=== PATIENT | female | born 1945 | race Caucasian/White ===

== ENCOUNTER 2018-12-28 07:41 | Emergency (ER) | payer MEDICARE, MEDICAID ==
[~2018-12-28] VITALS: Ht 167.6 cm; Wt 104.5 kg
[~2018-12-28 07:41] MED LIST: FOLI1 PO; HYDR25TA PO; LISI-660 PO; LOVA20 PO; MV-M1TAB2 PO; SERT100T12 PO; THIA100T67 PO
[2018-12-28 07:43] VITALS: BP 159/86
[2018-12-28 08:00] LABS: GLUCOSE,POINT OF CARE 133 MG/DL (70-110)
[2018-12-28] MEDS ORDERED: CEPHALEXIN MONOHYDRATE 500 MG CAPSULE PO ONE (08:30)
[2018-12-28] MEDS ORDERED: PHENAZOPYRIDINE HCL 100 MG TABLET PO ONE (08:30)
== END 2018-12-28 08:46 | disposition home or self-care (01) ==
LOC: EMS 07:43
DX: N30.90 Cystitis, unspecified without hematuria (principal); E11.9 Type 2 diabetes mellitus without complications; Z88.5 Allergy status to narcotic agent; Z79.899 Other long term (current) drug therapy

== ENCOUNTER 2019-04-10 14:16 | Emergency (ER) | payer MEDICARE, OTHER ==
[~2019-04-10] VITALS: Ht 170.2 cm; Wt 93.6 kg
[2019-04-10 14:45] LABS: GLUCOSE,POINT OF CARE 108 MG/DL (70-110)
[2019-04-10 15:51] VITALS: BP 148/91
== END 2019-04-10 16:08 | disposition home or self-care (01) ==
LOC: EMS 14:19
DX: J40 Bronchitis, not specified as acute or chronic (principal); E11.9 Type 2 diabetes mellitus without complications; Z88.5 Allergy status to narcotic agent; Z79.899 Other long term (current) drug therapy

== ENCOUNTER 2019-04-29 10:08 | Emergency (ER) | payer MEDICARE, OTHER ==
[~2019-04-29] VITALS: Ht 170.2 cm; Wt 98.6 kg
[2019-04-29 12:08] VITALS: BP 123/67
[2019-04-29 12:21] LABS: BILIRUBIN,URINE NEGATIVE (NEGATIVE); GLUCOSE, URINE (UA) NEGATIVE (NEGATIVE); KETONES,URINE NEGATIVE (NEGATIVE); LEUKOCYTE ESTERASE ,URINE SMALL (NEGATIVE); NITRATE,URINE NEGATIVE (NEGATIVE); OCCULT BLOOD,URINE NEGATIVE (NEGATIVE); PH,URINE 5.5 (5.0-8.0); PROTEIN,URINE NEGATIVE (NEGATIVE)
[2019-04-29 12:24] LABS: APPEARANCE,URINE HAZY (CLEAR)
[2019-04-29 12:28] LABS: BACTERIA,URINE None Seen /HPF (None Seen); RBC,URINE None Seen /HPF (0-2)
[2019-04-29 12:29] LABS: SQUAMOUS EPITHELIAL CELL,UR Moderate /LPF (None Seen)
== END 2019-04-29 13:03 | disposition home or self-care (01) ==
LOC: EMS 10:09
DX: N34.2 Other urethritis (principal); I10 Essential (primary) hypertension; E11.9 Type 2 diabetes mellitus without complications; Z90.89 Acquired absence of other organs; Z88.5 Allergy status to narcotic agent; Z79.899 Other long term (current) drug therapy